=== PATIENT | female | born 1980 | race Asian ===

== ENCOUNTER 2017-07-21 18:12 | Emergency (ER) | payer OTHER ==
[2017-07-21 18:20] VITALS: BP 121/96
--- NOTE | 2017-07-21 20:52 | UC ---
Le Hines Gabriel, scribed for Martin Gaines MD on 07/21/17 at 1829 . Complaint Female HPI - HPI Summary HPI Summary: This patient is a 37 year old F presenting to [facility] with a chief complaint of possible UTI since 2 days ago. The patient rates the pain 2/10 in severity. Patient reports constant sensation to urinate w/ little output, kidney pain, painful urination, chills, and suprapubic pain. Patient has had UTIs previously and says these symptoms are similar. LNMP 2 weeks ago and is trying to get . - History Of Current Complaint Chief Complaint: UCGU Stated Complaint: POSS UTI Time Seen by Provider: 07/21/17 18:22 Hx Obtained From: Patient Hx Last Menstrual Period: 2 wks ago Onset/Duration: Lasting Days - 2, Still Present Timing: Constant Pain Intensity: 2 Pain Scale Used: 0-10 Numeric - Allergies/Home Medications Allergies/Adverse Reactions: Allergies Allergy/AdvReac Type Severity Reaction Status Date / Time No Known Allergies Allergy Verified 07/21/17 18:19 Home Medications: Home Medications Aspirin [Aspirin 81 MG TAB] 1 tab PO DAILY 07/21/17 [History Confirmed 07/21/17] predniSONE TAB* [Deltasone TAB*] 1 tab PO BID 07/21/17 [History Confirmed ] PMH/Surg Hx/FS Hx/Imm Hx Previously Healthy: Yes - Surgical History Surgical History: None - Family History Known Family History: Positive: Hypertension - Social History Alcohol Use: Occasionally Substance Use Type: None Smoking Status (MU): Never Smoked Tobacco Review of Systems Constitutional: Chills Genitourinary: Dysuria, Other - constant sensation to urinate w/ little output Musculoskeletal: Other: - kidney pain, suprapubic pain All Other Systems Reviewed And Are Negative: Yes Physical Exam Triage Information Reviewed: Yes Appearance: Well-Appearing, No Pain Distress Vital Signs: Initial Vital Signs Temp 98.8 F 07/21/17 18:16 Pulse 87 07/21/17 18:16 Resp 12 07/21/17 18:16 BP 121/96 07/21/17 18:16 Pulse Ox 100 07/21/17 18:16 Eye Exam: Normal - EOMI, PERRL ENT Exam: Normal Neck exam: Normal Neck: Positive: Supple, Nontender Respiratory Exam: Normal - CTA Respiratory: Positive: Normal breath sounds Cardiovascular Exam: Normal Cardiovascular: Positive: RRR, No Murmur Abdomen Description: Positive: Soft, Other: - suprapubic tenderness Bowel Sounds: Positive: Present Musculoskeletal Exam: Normal - strength/ROM intact Neurological Exam: Normal - sensory/motor intact, A&O x3 Psychological Exam: Normal - affect/mood appropriate Complaint Female Dx - Course Course Of Treatment: DISCUSSED POSSIBLE CAUSES OF SX TO INCLUDE UTI AND KIDNEY STONE AND OTHER CAUSES OF ABDOMINAL/PELVIC PAIN. DISCUSSED GETTING A CT ABD/ PELVIS HERE TO EVALUATE FOR KIDNEY STONE AND GOING TO THE EMERGENCY DEPARTMENT FOR EVALUATION. AT THIS TIME THE PATIENT PREFERS TO TREAT FOR AN UTI; IF SHE DOES NOT IMPROVE, SHE WILL SEEK FURTHER EVALUATION AT THE EMERGENCY DEPARTMENT. - Differential Dx/Diagnosis Provider Diagnoses: DYSURIA. HEMATURIA. Discharge - Discharge Plan Condition: Stable Disposition: HOME Prescriptions: Phenazopyridine 200 mg (NF) [Pyridium 200 MG tab *] 200 mg PO TID PRN #10 tab PRN Reason: Pain Sulfamethox/Trimethoprim DS* [Bactrim DS 800/160 TAB*] 1 tab PO BID #20 tab Patient Education Materials: Hematuria (ED), Dysuria (ED) Referrals: Martin Tyler MD [Primary Care Provider] - Additional Instructions: FOLLOW UP WITH YOUR DOCTOR. GO TO THE EMERGENCY DEPARTMENT FOR ANY WORSENING OF YOUR CONDITION; PAIN, FEVER , YOU FEEL ILL, VOMITING OR QUESTIONS OR CONCERNS. The documentation as recorded by the Le weinstein Gabriel accurately reflects the service I personally performed and the decisions made by me, Martin Gaines MD.
== END 2017-07-21 19:00 | disposition home or self-care (01) ==
LOC: UCEAST 18:12
DX: R30.0 Dysuria (principal); R31.9 Hematuria, unspecified
CPT/HCPCS: 81003; 84702; 99212; G0463